=== PATIENT | male | born 1985 | race Caucasian/White ===

== ENCOUNTER 2021-12-17 14:26 | Emergency (ER) | payer OTHER ==
[2021-12-17] MEDS ORDERED: BACLOFEN 10MG T10 MG PO (16:36)
[2021-12-17] MEDS ORDERED: NAPROXEN500 MG PO (16:36)
== END 2021-12-17 16:44 | disposition home or self-care (01) ==
LOC: FER 14:26
DX: S02.40FA Zygomatic fracture, left side, initial encounter for closed fracture (principal); S16.1XXA Strain of muscle, fascia and tendon at neck level, initial encounter; S80.212A Abrasion, left knee, initial encounter; S80.211A Abrasion, right knee, initial encounter; S50.812A Abrasion of left forearm, initial encounter; S50.811A Abrasion of right forearm, initial encounter; S09.90XA Unspecified injury of head, initial encounter; J45.909 Unspecified asthma, uncomplicated; V29.9XXA Motorcycle rider (driver) (passenger) injured in unspecified traffic accident, initial encounter
CPT/HCPCS: 70450; 70486; 72125; J1100; J1885